=== PATIENT | male | born 1940 | race Caucasian/White ===

== ENCOUNTER 2020-08-14 08:43 | Observation (INO) ==
[2020-08-14 09:28] LABS: Basophils # 0.1 K/mcL (0.0-0.2); Basophils % 0.5 %; Eosinophils # 0.7 K/mcL (0.0-0.6); Eosinophils % 6.4 %; Hematocrit 34.1 % (37.5-50.1); Hemoglobin 10.9 g/dL (12.9-16.9); Immature Granulocytes % 0.3 % (0-4); Lymphocytes # 2.3 K/mcL (0.6-4.6); Lymphocytes % 19.6 %; Mean Corpuscular Hemoglobin 30.5 pg (28.0-33.3); Mean Corpuscular Volume 95.5 fL (83.0-100.0); Mean Platelet Volume 10.5 fL (9.4-12.4); Monocytes # 1.4 K/mcL (0.0-1.3); Monocytes % 12.2 %; Neutrophils # 7.1 K/mcL (1.6-8.9); Platelet Count 596 K/mcL (140-400); Red Blood Count 3.57 M/mcL (4.19-5.50); Red Cell Distribution Width 15.7 % (11.5-14.5); White Blood Count 11.6 K/mcL (4.3-11.1)
[2020-08-14 09:29] LABS: INR 1.3
[2020-08-14 09:31] LABS: Activated Partial Thrombo Time 41.5 Seconds (26.0-36.0)
[2020-08-14] MEDS ORDERED: Dexamethasone 4 MG/ML VIAL IVP ONE (09:33)
[2020-08-14] MEDS ORDERED: Azithromycin 500 MG in D5% in Water 250 ML IVPB ONE (09:33)
[2020-08-14 09:36] LABS: VBG HCO3 28 mEq/L (21-27); VBG PCO2 49 mmHg (41-51); VBG PH 7.36 pH Units (7.32-7.42); VBG PO2 36 mmHg (25-50)
[2020-08-14 09:39] LABS: Alanine Aminotransferase 14 Units/L (7-52); Albumin/Globulin Ratio 1.3 (1.1-2.2); Alkaline Phosphatase 34 Units/L (34-104); Aspartate Amino Transferase 28 Units/L (13-39); BUN/Creatinine Ratio 15 (6-26); Bilirubin,Direct 0.2 mg/dL (0.0-0.2); Bilirubin,Indirect 0.5 mg/dL (0.0-1.0); Bilirubin,Total 0.7 mg/dL (0.3-1.0); Blood Urea Nitrogen 19 mg/dL (8-23); Calcium 9.8 mg/dL (8.6-10.3); Carbon Dioxide 26 mEq/L (23-29); Chloride 101 mEq/L (98-107); Globulin 3.1 g/dL (2.4-3.5); Glucose 157 mg/dL (70-105); Osmolality,Calculated 288 (280-300); Potassium 4.1 mEq/L (3.5-5.1); Sodium 136 mEq/L (136-145); Total Protein 7.1 g/dL (6.4-8.9); eGFR For African Americans > 60 (> 60); eGFR For Non-African Americans 53 (> 60)
[2020-08-14 09:44] LABS: Troponin I 0.06 ng/mL (< 0.04)
[2020-08-14] MEDS: 0.9 % Sodium Chloride 1,000 ML IVC SCH ×3 (10:03→22:01)
[2020-08-14] MEDS ORDERED: Furosemide 40 MG/4 ML VIAL IVP ONE (10:17)
[2020-08-14] MEDS ORDERED: Nitroglycerin 1 INCH/GM PACKET TP ONE (10:17)
[2020-08-14 10:21] LABS: Bilirubin,Urine Negative (Negative); Blood,Urine Negative (Negative); Clarity,Urine Clear (Clear); Color,Urine Yellow (Yellow); Glucose,Urine (UA) Normal (Normal); Ketones,Urine Negative (Negative); Leukocyte Esterase,Urine Small (Negative); Nitrite,Urine Negative (Negative); PH,Urine 6.5 pH Units (5.0-8.0); Protein,Urine Negative (Neg-Trace); Urobilinogen,Urine Normal (Normal)
[2020-08-14 10:25] LABS: Bacteria,Urine Few per hpf (None-Few)
[2020-08-14] MEDS ORDERED: D5% in Water 1,000 ML IVC PRN (17:25)
[2020-08-14] MEDS ORDERED: *HR* Dextrose 50 % in Water (Vial) 50 ML VIAL IVP PRN (17:25)
[2020-08-14] MEDS ORDERED: Dextrose Gel 15 GM/37.5 ML TUBE PO PRN ×2 (17:25)
[2020-08-14] MEDS: Insulin LISPRO 300 UNITS/3 ML VIAL SQ SCH ×2 (17:53→21:43)
[2020-08-14] MEDS ORDERED: Furosemide 20 MG/2 ML VIAL IVP ONE (21:00)
[2020-08-14] MEDS: Ranolazine 500 MG TAB.ER.12H PO SCH (21:42)
[2020-08-14] MEDS: carvediloL 6.25 MG TABLET PO SCH (21:42)
[2020-08-14] MEDS: *HR* Metformin 500 MG TABLET PO SCH (21:42)
[2020-08-14] MEDS: Multivit/Ca/Min/Fe/FA 1 TAB TABLET PO SCH (21:42)
[2020-08-14] MEDS: FISH OIL PO SCH (21:43)
[2020-08-14] MEDS: EPA PO SCH (21:43)
[2020-08-14] MEDS: DHA PO SCH (21:43)
[2020-08-14] MEDS: Apixaban 5 MG TABLET PO SCH (21:43)
[2020-08-15 06:48] LABS: Basophils % 0.2 %; Eosinophils % 0.1 %; Hematocrit 35.5 % (37.5-50.1); Hemoglobin 11.1 g/dL (12.9-16.9); Immature Granulocytes % 0.3 % (0-4); Lymphocytes % 16.7 %; Mean Corpuscular HGB Conc 31.3 g/dL (31.6-35.5); Mean Corpuscular Hemoglobin 30.3 pg (28.0-33.3); Mean Platelet Volume 11.8 fL (9.4-12.4); Monocytes # 1.3 K/mcL (0.0-1.3); Monocytes % 10.4 %; Neutrophils # 8.8 K/mcL (1.6-8.9); Platelet Count 411 K/mcL (140-400); Red Blood Count 3.66 M/mcL (4.19-5.50); Red Cell Distribution Width 15.3 % (11.5-14.5); Segmented Neutrophils % 72.3 %; White Blood Count 12.2 K/mcL (4.3-11.1)
[2020-08-15 06:51] LABS: Magnesium 1.4 mg/dL (1.6-2.6)
[2020-08-15] MEDS: Insulin LISPRO 300 UNITS/3 ML VIAL SQ SCH ×4 (10:32→21:22)
[2020-08-15] MEDS: carvediloL 6.25 MG TABLET PO SCH ×2 (10:40→21:20)
[2020-08-15] MEDS: Multivit/Ca/Min/Fe/FA 1 TAB TABLET PO SCH ×2 (10:40→21:19)
[2020-08-15] MEDS: Ranolazine 500 MG TAB.ER.12H PO SCH ×2 (10:40→21:19)
[2020-08-15] MEDS: Fenofibrate 54 MG TABLET PO SCH (10:40)
[2020-08-15] MEDS: Apixaban 5 MG TABLET PO SCH ×2 (10:40→21:19)
[2020-08-15] MEDS: Cyanocobalamin (B-12) 1,000 MCG TABLET PO SCH (10:41)
[2020-08-15] MEDS: Aspirin Enteric Coated 81 MG Tablet PO SCH (10:41)
[2020-08-15] MEDS: *HR* Metformin 500 MG TABLET PO SCH ×2 (10:41→21:19)
[2020-08-15] MEDS: Furosemide 40 MG TABLET PO SCH (10:41)
[2020-08-15] MEDS: Cholecalciferol (D-3) 1,000 UNIT (25MCG) TABLET PO SCH (10:41)
[2020-08-15] MEDS: PrednisoLONE Acetate 1% Opth 5 ML BOTTLE LEFT EYE SCH (10:42)
[2020-08-15] MEDS: Azithromycin 500 MG in 0.9 % Sodium Chloride 250 ML IVPB SCH (10:43)
[2020-08-15] MEDS: Ketorolac OPTH Soln 5 ML BOTTLE LEFT EYE SCH (10:43)
[2020-08-15 11:33] LABS: Adenovirus Not Detected (Not Detect); Bordetella Pertussis Not Detected (Not Detect); Chlamydophila pneumoniae Not Detected (Not Detect); Coronavirus 229E Not Detected (Not Detect); Coronavirus HKU1 Not Detected (Not Detect); Coronavirus NL63 Not Detected (Not Detect); Coronavirus OC43 Not Detected (Not Detect); Human Metapneumovirus Not Detected (Not Detect); Human Rhinovirus/Enterovirus Not Detected (Not Detect); Influenza A Subtype 2009 H1 Not Detected (Not Detect); Influenza B Not Detected (Not Detect); Mycoplasma pneumoniae Not Detected (Not Detect); Parainfluenza Virus 1 Not Detected (Not Detect); Parainfluenza Virus 2 Not Detected (Not Detect); Parainfluenza Virus 3 Not Detected (Not Detect); Parainfluenza Virus 4 Not Detected (Not Detect); Respiratory Syncytial Virus Not Detected (Not Detect); SARS-CoV-2 Not Detected (Not Detect)
[2020-08-15] MEDS: cefTRIAXone 1,000 MG in 0.9 % Sodium Chloride Mini Bag 100 ML IVPB SCH (11:59)
[2020-08-15] MEDS: Magnesium Oxide 400 MG TABLET PO SCH (12:01)
[2020-08-15] MEDS: DHA PO SCH (21:23)
[2020-08-15] MEDS: EPA PO SCH (21:23)
[2020-08-15] MEDS: FISH OIL PO SCH (21:23)
[2020-08-16 05:28] LABS: Basophils # 0.1 K/mcL (0.0-0.2); Basophils % 0.5 %; Eosinophils # 0.5 K/mcL (0.0-0.6); Eosinophils % 4.5 %; Hemoglobin 10.2 g/dL (12.9-16.9); Immature Granulocytes % 0.4 % (0-4); Lymphocytes # 2.9 K/mcL (0.6-4.6); Lymphocytes % 26.2 %; Mean Corpuscular HGB Conc 32.9 g/dL (31.6-35.5); Mean Corpuscular Hemoglobin 30.8 pg (28.0-33.3); Mean Corpuscular Volume 93.7 fL (83.0-100.0); Mean Platelet Volume 10.5 fL (9.4-12.4); Monocytes # 1.4 K/mcL (0.0-1.3); Monocytes % 12.6 %; Neutrophils # 6.2 K/mcL (1.6-8.9); Platelet Count 550 K/mcL (140-400); Red Blood Count 3.31 M/mcL (4.19-5.50); Red Cell Distribution Width 15.5 % (11.5-14.5); Segmented Neutrophils % 55.8 %
[2020-08-16 05:44] LABS: BUN/Creatinine Ratio 18 (6-26); Blood Urea Nitrogen 25 mg/dL (8-23); Calcium 9.4 mg/dL (8.6-10.3); Carbon Dioxide 28 mEq/L (23-29); Chloride 101 mEq/L (98-107); Glucose 112 mg/dL (70-105); Osmolality,Calculated 289 (280-300); Potassium 3.8 mEq/L (3.5-5.1); Sodium 137 mEq/L (136-145); eGFR For African Americans > 60 (> 60); eGFR For Non-African Americans 50 (> 60)
[2020-08-16] MEDS: Insulin LISPRO 300 UNITS/3 ML VIAL SQ SCH ×2 (07:54→12:19)
[2020-08-16] MEDS: Aspirin Enteric Coated 81 MG Tablet PO SCH (09:19)
[2020-08-16] MEDS: Magnesium Oxide 400 MG TABLET PO SCH (09:19)
[2020-08-16] MEDS: carvediloL 6.25 MG TABLET PO SCH (09:19)
[2020-08-16] MEDS: Cholecalciferol (D-3) 1,000 UNIT (25MCG) TABLET PO SCH (09:19)
[2020-08-16] MEDS: Cyanocobalamin (B-12) 1,000 MCG TABLET PO SCH (09:19)
[2020-08-16] MEDS: Multivit/Ca/Min/Fe/FA 1 TAB TABLET PO SCH (09:19)
[2020-08-16] MEDS: Furosemide 40 MG TABLET PO SCH (09:19)
[2020-08-16] MEDS: Ranolazine 500 MG TAB.ER.12H PO SCH (09:19)
[2020-08-16] MEDS: Fenofibrate 54 MG TABLET PO SCH (09:19)
[2020-08-16] MEDS: *HR* Metformin 500 MG TABLET PO SCH (09:19)
[2020-08-16] MEDS: Apixaban 5 MG TABLET PO SCH (09:19)
[2020-08-16] MEDS: Ketorolac OPTH Soln 5 ML BOTTLE LEFT EYE SCH (09:20)
[2020-08-16] MEDS: PrednisoLONE Acetate 1% Opth 5 ML BOTTLE LEFT EYE SCH (09:21)
[2020-08-16] MEDS: cefTRIAXone 1,000 MG in 0.9 % Sodium Chloride Mini Bag 100 ML IVPB SCH (09:23)
[2020-08-16] MEDS: Azithromycin 500 MG in 0.9 % Sodium Chloride 250 ML IVPB SCH (10:35)
[2020-08-16 10:42] LABS: Estimated Average Glucose 146 mg/dl
[2020-08-16 11:23] VITALS: BP 118/74
== END 2020-08-16 12:49 | disposition home or self-care (01) ==
LOC: EMEROOGRE 08:43 → INPGRE 12:36 → INTOOBSV 12:36 → INPGRE 12:58
PROVIDERS: ADMIT Family Medicine; ATTEND Family Medicine

== ENCOUNTER 2020-12-30 19:46 | Observation (INO) ==
[2020-12-30] MEDS ORDERED: Furosemide 40 MG/4 ML VIAL IVP ONE (20:05)
[2020-12-30 20:37] LABS: Basophils # 0.1 K/mcL (0.0-0.2); Basophils % 0.5 %; Eosinophils # 0.7 K/mcL (0.0-0.6); Eosinophils % 6.6 %; Hematocrit 32.1 % (37.5-50.1); Immature Granulocytes % 0.4 % (0-4); Lymphocytes # 2.8 K/mcL (0.6-4.6); Lymphocytes % 25.5 %; Mean Corpuscular HGB Conc 31.2 g/dL (31.6-35.5); Mean Corpuscular Hemoglobin 29.9 pg (28.0-33.3); Mean Corpuscular Volume 96.1 fL (83.0-100.0); Mean Platelet Volume 10.1 fL (9.4-12.4); Monocytes # 1.1 K/mcL (0.0-1.3); Monocytes % 10.2 %; Neutrophils # 6.3 K/mcL (1.6-8.9); Nucleated Red Blood Cells 0.2 /100 WBC (0); Platelet Count 561 K/mcL (140-400); Red Blood Count 3.34 M/mcL (4.19-5.50); Red Cell Distribution Width 15.6 % (11.5-14.5); Segmented Neutrophils % 56.8 %; White Blood Count 11.1 K/mcL (4.3-11.1)
[2020-12-30 20:43] LABS: INR 1.3; Prothrombin Time 15.1 Seconds (9.4-12.1)
[2020-12-30 20:46] LABS: Activated Partial Thrombo Time 37.9 Seconds (26.0-36.0)
[2020-12-30 20:56] LABS: Albumin/Globulin Ratio 1.3 (1.1-2.2); Bilirubin,Direct 0.1 mg/dL (0.0-0.2); Bilirubin,Indirect 0.4 mg/dL (0.0-1.0); Bilirubin,Total 0.5 mg/dL (0.3-1.0); Calcium 9.4 mg/dL (8.6-10.3); Globulin 3.1 g/dL (2.4-3.5); Potassium 4.2 mEq/L (3.5-5.1); Total Protein 7.1 g/dL (6.4-8.9); Troponin I 0.05 ng/mL (< 0.04)
[2020-12-30] MEDS ORDERED: Nitroglycerin 1 INCH/GM PACKET TP ONE (21:26)
[2020-12-30] MEDS ORDERED: Naloxone 0.4 MG/ML INJ IVP PRN (21:44)
[2020-12-31] MEDS ORDERED: Furosemide 40 MG/4 ML VIAL IVP ONE ×2 (03:00→11:25)
[2020-12-31] MEDS ORDERED: Nitroglycerin 1 INCH/GM PACKET TP ONE (03:00)
[2020-12-31] MEDS: Apixaban 5 MG TABLET PO SCH ×2 (08:54→20:35)
[2020-12-31] MEDS: Multivit/Ca/Min/Fe/FA 1 TAB TABLET PO SCH ×2 (08:54→20:36)
[2020-12-31] MEDS: carvediloL 6.25 MG TABLET PO SCH ×2 (08:54→16:24)
[2020-12-31] MEDS: Cyanocobalamin (B-12) 1,000 MCG TABLET PO SCH (08:54)
[2020-12-31] MEDS: *HR* Metformin 500 MG TABLET PO SCH ×2 (08:54→16:24)
[2020-12-31] MEDS: Aspirin Enteric Coated 81 MG Tablet PO SCH (08:54)
[2020-12-31] MEDS: Cholecalciferol (D-3) 1,000 UNIT (25MCG) TABLET PO SCH (08:54)
[2020-12-31] MEDS: EPA PO SCH (08:55)
[2020-12-31] MEDS: Ranolazine 500 MG TAB.ER.12H PO SCH ×2 (08:55→20:35)
[2020-12-31] MEDS: DHA PO SCH (08:55)
[2020-12-31] MEDS: FISH OIL PO SCH (08:55)
[2020-12-31] MEDS ORDERED: Insulin LISPRO 300 UNITS/3 ML VIAL SUBQ SCH ×2 (09:00→21:00)
[2020-12-31] MEDS ORDERED: *HR* Dextrose 50 % in Water (Vial) 50 ML VIAL IVP PRN (09:05)
[2020-12-31] MEDS ORDERED: Dextrose Gel 15 GM/37.5 ML TUBE PO PRN ×2 (09:05)
[2020-12-31] MEDS ORDERED: D5% in Water 1,000 ML IVC PRN (09:05)
[2020-12-31] MEDS ORDERED: Perflutren Lipid Microsphere 1.3 ML in 0.9 % Sodium Chloride 8.7 ML IVP PRN (11:25)
[2020-12-31 11:38] LABS: Hematocrit 30.6 % (37.5-50.1); Hemoglobin 9.9 g/dL (12.9-16.9); Mean Corpuscular HGB Conc 32.4 g/dL (31.6-35.5); Mean Corpuscular Hemoglobin 30.7 pg (28.0-33.3); Mean Corpuscular Volume 94.7 fL (83.0-100.0); Platelet Count 539 K/mcL (140-400); Red Blood Count 3.23 M/mcL (4.19-5.50); Red Cell Distribution Width 15.7 % (11.5-14.5); White Blood Count 11.1 K/mcL (4.3-11.1)
[2020-12-31 11:46] LABS: BUN/Creatinine Ratio 15 (6-26); Blood Urea Nitrogen 18 mg/dL (8-23); Calcium 9.8 mg/dL (8.6-10.3); Carbon Dioxide 26 mEq/L (23-29); Chloride 98 mEq/L (98-107); Glucose 175 mg/dL (70-105); Magnesium 1.3 mg/dL (1.6-2.6); Osmolality,Calculated 290 (280-300); Potassium 3.9 mEq/L (3.5-5.1); Sodium 137 mEq/L (136-145); eGFR For African Americans > 60 (> 60); eGFR For Non-African Americans 57 (> 60)
[2020-12-31] MEDS: Insulin LISPRO 300 UNITS/3 ML VIAL SUBQ SCH ×2 (12:17→16:25)
[2020-12-31] MEDS: Insulin DETEMIR 100 UNIT/ML X5UNITS SUBQ SCH (20:41)
[2020-12-31] MEDS ORDERED: FISH OIL PO SCH (21:00)
[2020-12-31] MEDS ORDERED: Insulin DETEMIR 100 UNIT/ML X5UNITS SUBQ SCH (21:00)
[2020-12-31] MEDS ORDERED: DHA PO SCH (21:00)
[2020-12-31] MEDS ORDERED: EPA PO SCH (21:00)
[2021-01-01 05:26] LABS: BUN/Creatinine Ratio 17 (6-26); Blood Urea Nitrogen 20 mg/dL (8-23); Calcium 9.3 mg/dL (8.6-10.3); Carbon Dioxide 27 mEq/L (23-29); Chloride 99 mEq/L (98-107); Glucose 133 mg/dL (70-105); Osmolality,Calculated 287 (280-300); Potassium 3.8 mEq/L (3.5-5.1); Sodium 136 mEq/L (136-145); eGFR For African Americans > 60 (> 60); eGFR For Non-African Americans > 60 (> 60)
[2021-01-01] MEDS: Apixaban 5 MG TABLET PO SCH (08:05)
[2021-01-01] MEDS: Ranolazine 500 MG TAB.ER.12H PO SCH (08:05)
[2021-01-01] MEDS: Insulin LISPRO 300 UNITS/3 ML VIAL SUBQ SCH ×2 (08:05→12:24)
[2021-01-01] MEDS: Cholecalciferol (D-3) 1,000 UNIT (25MCG) TABLET PO SCH (08:05)
[2021-01-01] MEDS: *HR* Metformin 500 MG TABLET PO SCH (08:06)
[2021-01-01] MEDS: Cyanocobalamin (B-12) 1,000 MCG TABLET PO SCH (08:06)
[2021-01-01] MEDS: carvediloL 6.25 MG TABLET PO SCH (08:06)
[2021-01-01] MEDS: DHA PO SCH (08:06)
[2021-01-01] MEDS: FISH OIL PO SCH (08:06)
[2021-01-01] MEDS: Aspirin Enteric Coated 81 MG Tablet PO SCH (08:06)
[2021-01-01] MEDS: Multivit/Ca/Min/Fe/FA 1 TAB TABLET PO SCH (08:06)
[2021-01-01] MEDS: EPA PO SCH (08:06)
[2021-01-01] MEDS: Insulin DETEMIR 100 UNIT/ML X5UNITS SUBQ SCH (08:10)
[2021-01-01] MEDS ORDERED: Furosemide 40 MG TABLET PO SCH (10:02)
[2021-01-01 12:09] VITALS: BP 130/65
== END 2021-01-01 15:30 | disposition home or self-care (01) ==
LOC: EMEROOGRE 19:46 → INPGRE 19:46
PROVIDERS: ADMIT Family Medicine; ATTEND Family Medicine